=== PATIENT | female | born 1980 | race Caucasian/White ===

== ENCOUNTER 2016-11-20 12:44 | Inpatient (IN) | payer OTHER ==
--- NOTE | 2016-11-20 13:35 | OBPROG ---
OBG Progress Note Assessment/Plan: Assessment: cat 2 fhr variable decelerations noted with contractions + bloody show pain well managed choosing non medicated at this time choosing to rest in bed exam 100/-2 cephalic Plan:iv fluids, continuous monitoring, admit for labor 11/20/16 13:33 Subjective: Doing well. Coping well with contractions. + movement. + bloody show. Denies ROM. - SVE Dilation (cm): 5 Current Contraction Pattern: Regular FHR (bpm): 135 FHR Pattern Variability: Moderate Membranes: Intact - Physical Exam General Appearance: WD/WN, alert, no apparent distress Respiratory: chest non-tender, lungs clear, normal breath sounds Cardiac/Chest: regular rate, rhythm Abdomen: normal bowel sounds Membranes: Intact Extremities: normal range of motion, Pinky's sign (negative homens sign) DTR- Lower Extremities: Knee (R): 1+, Knee (L): 1+ Skin: normal color, warm/dry Neuro/Psych: no motor/sensory deficits, alert, normal mood/affect, oriented x 3 ICD10 Worksheet Patient Problems: Problems Problem Status Onset Active labor at term Acute Normal spontaneous vaginal delivery Acute
[2016-11-20] MEDS ORDERED: MISOPROSTOL 200 MCG TAB ONE (14:08)
[2016-11-20] MEDS ORDERED: OLIVE OIL 118 ML BTL ONE (14:08)
[2016-11-20] MEDS ORDERED: LIDOCAINE 1% 30 ML SDV ONE (14:14)
[2016-11-20] MEDS ORDERED: OXYTOCIN/RINGERS LACTATE 20 UNIT/1,000 ML BAG IV ONE (14:14)
[2016-11-20] MEDS ORDERED: OXYTOCIN 10 UNIT/ML VIAL ONE (14:19)
--- NOTE | 2016-11-20 14:22 | GHP ---
[f rep st] HISTORY AND PHYSICAL DATE OF ADMISSION: 11/20/2016 HISTORY OF PRESENT ILLNESS: The patient is a 35-year-old, 2, para 1, with an EDC of 017, which makes her 39-4/7 weeks gestational age. States feeling regular contractions since 10:30 on 11/20/2016. Denies rupture of membranes. Feeling positive movement, positive bloody show. On admit to Labor and Delivery, patient 5 cm, 100% effaced, -2 station, cephalic in presentation. Contractions are every 3 to 4 minutes. PAST MEDICAL HISTORY: The patient has a history of several UTIs, none for several years. PAST SURGICAL HISTORY: Left foot little toe surgery in 7th grade. ALLERGIES: Previous steroid reaction with admit to hospital while in elementary school. HISTORY: Patient is AMA, also two-vessel cord anterior placenta that is greater than 2 cm from the cervix and a followup ultrasound between 28 and 32 weeks. Previous history: In 04/2014, a female at 6 pounds 13 ounces, 39 weeks, 10 hours of labor , vaginal delivery with just local anesthetic. Elevated blood pressure with that delivery. Previou s anemia with that . LABS: Patient is A positive. Antibody negative. RPR is nonreactive. Rubella is immune. Hepatiti s is negative. HIV is negative. Triage screen in 2013 was within normal limits. Thyroid TSH on , was within normal limits at 0.660. Pap test was within normal limits. Urine culture was within normal limits. Gonorrhea and chlamydia on 09/11/2016, is within normal limits. Verifi was n egative. One hour GTT was within normal limits. The patient states that she is GBS negative. PHYSICAL EXAMINATION: GENERAL: The patient is awake, alert, oriented x3. LUNGS: Clear bilaterall y. ABDOMEN: Bowel sounds are positive in all 4 quadrants. On palpation abdomen is soft in between contractions. EXTREMITIES: DTRs are 1+ bilaterally. No clonus. Homans' sign is negative bilater ally. PELVIC: Positive bloody show. Exam is 5, 100, - 2 and cephalic with contractions q.3 to 4 m inutes apart. Cephalic in presentation on exam by nurse. PLAN OF CARE: 1. Admit to Labor and Delivery. 2. The patient is requesting nonmedicated . 3. Expectant management of labor. /[id number]/MODL
[2016-11-20] MEDS ORDERED: METHYLERGONOVINE MAL 0.2 MG/ML INJ ONE (14:25)
[2016-11-20] MEDS ORDERED: SIMETHICONE 80 MG TAB CHEW PO PRN (14:42)
[2016-11-20] MEDS ORDERED: ACETAMINOPHEN 325 MG TAB PO PRN (14:42)
[2016-11-20] MEDS ORDERED: HYDROCORTISONE 0.5% CREAM TP PRN (14:42)
[2016-11-20] MEDS ORDERED: DOCUSATE SODIUM 100 MG CAP PO PRN (14:42)
[2016-11-20] MEDS ORDERED: HYDROCODONE/APAP 5/325 TAB PO PRN (14:42)
--- NOTE | 2016-11-20 14:44 | OBPROC ---
- Labor and Delivery Onset of Contractions Date: 11/20/16 Onset of Contractions Time: 06:00 Onset of Contractions Type: Spontaneous Rupture of Membranes Date: 11/20/16 Rupture of Membranes Time: 13:50 Rupture of Membranes Type: Spontaneous Amniotic Fluid Color: Clear Delivery Type: Spontaneous Placenta Delivery Date: 11/20/16 Placenta Delivery Time: 14:18 Episiotomy/Laceration: 2nd Degree Repair: 3-0, Vicryl EBL: 350 Complications: None - Medications Labor Augmentation/Induction Meds Used: None Anesthesia: Local (Specify) - Info Infant A Delivery Date: 11/20/16 Delivery Time: 14:13 Sex of Infant: Male Score (1 Min): 8 Score (5 Min): 9
[2016-11-20] MEDS ORDERED: OLIVE OIL 118 ML BTL MISC PRN (15:23)
[2016-11-20] MEDS ORDERED: EPSOM SALT 454 GM TP PRN (15:23)
[2016-11-20] MEDS ORDERED: LR 1,000 ML IV PRN (15:23)
[2016-11-20] MEDS ORDERED: LIDOCAINE 1% 30 ML SDV SC PRN (15:23)
[2016-11-20] MEDS ORDERED: OXYTOCIN/RINGERS LACTATE 1,000 ML IV PRN (15:23)
[2016-11-20] MEDS ORDERED: TERBUTALINE SULFATE 1 MG/ML VIAL IV PRN (15:23)
[2016-11-20] MEDS: IBUPROFEN 600 MG TAB PO PRN ×2 (15:32→21:18)
[2016-11-21 09:33] VITALS: BP 114/72; PULSE 84; RESP 18; TEMP 98.2; O2SAT 97
[2016-11-21] MEDS: IBUPROFEN 600 MG TAB PO PRN ×2 (09:34→16:01)
--- NOTE | 2016-11-21 12:35 | SOAPPROG ---
SOAP Progress Note Assessment/Plan: Assessment: ppd# 1 s/p breast feeding Plan: routine post care and discharge instructions 11/21/16 12:32 Subjective: patient is doing great! normal lochia. breast feeding. denies headache and changes in vision. ready to go home. no issues Objective: Vital Signs Temp Pulse Resp BP Pulse Ox 36.8 C 84 18 114/72 97 11/21/16 08:00 11/21/16 08:00 11/21/16 08:00 11/21/16 08:00 11/21/16 08:00 Laboratory Results 11/21/16 05:45 11/20/16 11/21/16 11/22/16 05:59 05:59 05:59 Output Total 350 Balance -350 Physical Exam - Physical Exam General Appearance: WD/WN, alert, no apparent distress Respiratory: chest non-tender, lungs clear, normal breath sounds Cardiac/Chest: normal peripheral pulses, regular rate, rhythm Abdomen: normal bowel sounds, non-tender, soft, other (fundus firm and non tender) Skin: normal color, warm/dry Extremities: normal range of motion, non-tender, normal inspection, normal capillary refill Neuro/Psych: no motor/sensory deficits, alert, normal mood/affect, oriented x 3 ICD10 Worksheet Patient Problems: Problems Problem Status Onset Active labor at term Acute Normal spontaneous vaginal delivery Acute
== END 2016-11-21 17:20 | disposition home or self-care (01) | DRG 775 ==
LOC: OBSVTOIN 12:44 → FLD 12:44 → FOB 16:44
PROVIDERS: ADMIT Obstetrics & Gynecology; ATTEND Obstetrics & Gynecology
DX: O70.1 Second degree perineal laceration during delivery (principal); Z37.0 Single live birth; Z3A.39 39 weeks gestation of pregnancy
CPT/HCPCS: J2210; J2590